=== PATIENT | female | born 1950 | race Caucasian/White ===

== ENCOUNTER 2023-02-26 14:10 | Emergency (ER) | payer MEDICARE, BC ==
[2023-02-26] MEDS ORDERED: Lidocaine 1% 30 ML SDV INJECT ONE (14:35)
== END 2023-02-26 16:04 | disposition home or self-care (01) ==
LOC: VM.ED 14:10
DX: S61.212A Laceration without foreign body of right middle finger without damage to nail, initial encounter (principal); S61.213A Laceration without foreign body of left middle finger without damage to nail, initial encounter; E78.00 Pure hypercholesterolemia, unspecified; I10 Essential (primary) hypertension; J45.909 Unspecified asthma, uncomplicated; Z91.018 Allergy to other foods; W22.09XA Striking against other stationary object, initial encounter
CPT/HCPCS: 12002; 73140-F7; 99283; J3490